=== PATIENT | female | born 1945 | race Caucasian/White ===

== ENCOUNTER 2017-05-28 12:51 | Inpatient (IN) | payer MEDICARE, BC ==
[~2017-05-28] VITALS: Ht 154.9 cm; Wt 45.4 kg
[~2017-05-28 12:51] MED LIST: ALBU18HF INH; ASPI-650 PO; ASPI81TA50 PO; CEFD300C37 PO; CHLO25CA9 PO; CHOL200040 PO; CIPR500T87 PO; ERGO500040 PO; FLUO10CA7 PO; FLUT12HF2 IH; FOLI-17 PO; FURO-93 PO; HYDR-3245 PO; HYDR-882 PO; LEVO50CA2 PO; LEVO750T26 PO; LEVO75TA5 PO; METH2.5T PO; MOXI400T PO; OMEP40CA6 PO; POTA20PA PO; PRED10TA14 PO; PRED20TA PO; PRED5TAB PO; TRAM-47 PO; Will bring list DOS
[2017-05-28] MEDS ORDERED: ONDANSETRON 2MG/ML, 2ML ONE ×2 (14:30→19:46)
[2017-05-28] MEDS ORDERED: SODIUM CHLORIDE FLUSH 10ML SYR IVF ONE (14:30)
[2017-05-28] MEDS ORDERED: morphine SULFATE 10 MG/ML, 1ML ONE (14:30)
[2017-05-28] MEDS ORDERED: SODIUM CHLORIDE 0.9% 1,000ML IVBOLUS ONE (14:30)
[2017-05-28 14:33] LABS: ASPARTATE AMINO TRANSFERASE 23 U/L (15-37); BLOOD UREA NITROGEN 10 mg/dL (7-18)
[2017-05-28 14:38] LABS: IS PT STATUS REG ER OR PRE ER? YES
[2017-05-28 14:40] LABS: HEMOGLOBIN 12.3 g/dL (11.7-16.4); WHITE BLOOD COUNT 5.4 x10^3/uL (3.4-10)
[2017-05-28 14:41] LABS: DIFF TOTAL CELLS COUNTED 100 CELL DIFF
[2017-05-28] MEDS: MORPHINE SULFATE 4 MG/ML, 1ML IVPush PRN ×2 (15:00→15:23)
[2017-05-28 15:06] LABS: VERIFY COUNTS? YES
[2017-05-28 15:09] LABS: OVALOCYTES 1+
[2017-05-28] MEDS ORDERED: FURO-93 PO (15:09)
[2017-05-28] MEDS ORDERED: PRED10TA14 PO (15:09)
[2017-05-28] MEDS ORDERED: TRAZ100T15 PO (15:09)
[2017-05-28] MEDS ORDERED: LEVO88TA4 PO (15:09)
[2017-05-28] MEDS ORDERED: CHLO25CA9 PO (15:09)
[2017-05-28] MEDS ORDERED: HYDR-3245 PO (15:09)
[2017-05-28] MEDS ORDERED: FENTANYL PF 100 MCG/2ML ONE ×2 (16:06→16:59)
[2017-05-28] MEDS ORDERED: FENTANYL PF 100 MCG/2ML IV ONE ×3 (16:30→17:00)
[2017-05-28] MEDS ORDERED: SODIUM CHLORIDE 0.9%, 500ML IVBOLUS ONE (17:00)
[2017-05-28] MEDS ORDERED: CEFOXITIN 2,000 MG in SODIUM CHLORIDE 0.9% 50 ML IV ONE (17:00)
[2017-05-28] MEDS ORDERED: DOCUSATE 100 MG CAPSULE PO PRN (17:30)
[2017-05-28] MEDS ORDERED: POLYETHYLENE GLYCOL 17 GM PACKET PO PRN (17:30)
[2017-05-28] MEDS ORDERED: BISACODYL 10 MG SUPP PR PRN (17:30)
[2017-05-28] MEDS ORDERED: ONDANSETRON 2MG/ML, 2ML IVPush PRN (17:30)
[2017-05-28] MEDS ORDERED: HYDROcodone/APAP 5/325 TABLET PO PRN (17:30)
[2017-05-28] MEDS ORDERED: ENALAPRILAT 1.25 MG/ML, 2ML IVPush PRN (17:30)
[2017-05-28] MEDS ORDERED: ACETAMINOPHEN 325 MG TABLET PO PRN (17:30)
[2017-05-28] MEDS ORDERED: HYDROmorphone 2 MG/ML, 1ML ONE ×3 (17:41→19:45)
[2017-05-28] MEDS: HYDROmorphone 2 MG/ML, 1ML IVPush PRN ×2 (17:48→20:00)
[2017-05-28 20:50] VITALS: BP 109/69
[2017-05-28] MEDS: NS + 20MEQ KCL 1,000 ML IV SCH (22:09)
[2017-05-28] MEDS: PIPERACILLIN/TAZO/PMX 3.375GM 50 ML IV SCH (22:09)
[2017-05-28] MEDS ORDERED: NICOTINE 21 MG/24 HR PATCH.TD24 TD SCH (22:30)
[2017-05-29] MEDS: HYDROmorphone 2 MG/ML, 1ML IVPush PRN ×6 (02:58→17:31)
[2017-05-29 03:06] VITALS: BP 100/68
[2017-05-29] MEDS: PIPERACILLIN/TAZO/PMX 3.375GM 50 ML IV SCH ×3 (04:32→16:00)
[2017-05-29 05:42] LABS: HEMATOCRIT 40.1 % (34.6-47.8); HEMOGLOBIN 13.3 g/dL (11.7-16.4); WHITE BLOOD COUNT 4.3 x10^3/uL (3.4-10)
[2017-05-29 05:52] LABS: BLOOD UREA NITROGEN 14 mg/dL (7-18)
[2017-05-29 05:57] LABS: ASPARTATE AMINO TRANSFERASE 20 U/L (15-37)
[2017-05-29 06:23] LABS: DIFF TOTAL CELLS COUNTED 100 CELL DIFF
[2017-05-29 06:28] LABS: VERIFY COUNTS? YES
[2017-05-29 06:29] LABS: ANISOCYTOSIS 1+
[2017-05-29 06:30] LABS: POLYCHROMASIA 1+
[2017-05-29 07:27] VITALS: BP 89/61
[2017-05-29] MEDS ORDERED: morphine SULFATE 10 MG/ML, 1ML IVPush PRN (10:00)
[2017-05-29] MEDS ORDERED: SCOPOLAMINE PATCH, 1.5MG PATCH.TD72 TD PRN (10:00)
[2017-05-29] MEDS ORDERED: ATROPINE OPHTH SOLN 1%, 5ML BC PRN (10:00)
[2017-05-29] MEDS: NS + 20MEQ KCL 1,000 ML IV SCH (10:00)
[2017-05-29] MEDS ORDERED: LORazepam 2 MG/ML, 1ML IVPush PRN (10:00)
[2017-05-29] MEDS ORDERED: SODIUM CHLORIDE 0.9% IVPB PRN (11:00)
[2017-05-29] MEDS ORDERED: HYDROMORPHONE IVPB PRN (11:00)
== END 2017-05-29 20:45 | disposition expired | DRG 393 ==
LOC: ED 16:39 → EDIP 16:54 → 4NOR 20:30 → 3NW 05-29 17:14
PROVIDERS: ADMIT Internal Medicine; ATTEND Internal Medicine
PROC: 0T9B70Z Drainage of Bladder with Drainage Device, Via Natural or Artificial Opening (ICD-10-PCS; principal; 2017-05-28)
DX: K55.9 Vascular disorder of intestine, unspecified (principal); K63.1 Perforation of intestine (nontraumatic); J18.9 Pneumonia, unspecified organism; E44.0 Moderate protein-calorie malnutrition; J96.10 Chronic respiratory failure, unspecified whether with hypoxia or hypercapnia; D89.9 Disorder involving the immune mechanism, unspecified; I50.32 Chronic diastolic (congestive) heart failure; E87.1 Hypo-osmolality and hyponatremia; J44.0 Chronic obstructive pulmonary disease with (acute) lower respiratory infection; Z68.1 Body mass index [BMI] 19.9 or less, adult; R18.8 Other ascites; K21.9 Gastro-esophageal reflux disease without esophagitis; M35.3 Polymyalgia rheumatica; M81.0 Age-related osteoporosis without current pathological fracture; Z66 Do not resuscitate; F32.9 Major depressive disorder, single episode, unspecified; Z51.5 Encounter for palliative care; F41.9 Anxiety disorder, unspecified; G89.29 Other chronic pain; M54.30 Sciatica, unspecified side; E03.9 Hypothyroidism, unspecified; F17.200 Nicotine dependence, unspecified, uncomplicated; Z88.1 Allergy status to other antibiotic agents; Z91.041 Radiographic dye allergy status; Z91.040 Latex allergy status; Z88.5 Allergy status to narcotic agent; Z91.048 Other nonmedicinal substance allergy status; Z86.73 Personal history of transient ischemic attack (TIA), and cerebral infarction without residual deficits; Z90.49 Acquired absence of other specified parts of digestive tract; Z90.89 Acquired absence of other organs; Z72.89 Other problems related to lifestyle
CPT/HCPCS: 36415; 74176; 80053; 81003; 83605; 83690; 84484; 85025; 85610; 85651; 85730; 87040; 93005; 96361; 96365; 96375; 96376; J1170; J2405; J2543; J3010; J3480; J0694; J2060; J7030; J7040